=== PATIENT | male | born 1940 | race Caucasian/White ===

== ENCOUNTER 2016-10-25 12:58 | Emergency (ER) | payer MEDICARE ==
--- NOTE | 2016-10-25 13:42 | EDM.PDOC ---
ED HPI GENERAL MEDICAL PROBLEM - General Chief Complaint: General Stated Complaint: WILL CHEST PRESSURE Time Seen by Provider: 10/25/16 13:28 Source of Information: Reports: Patient, RN Notes Reviewed History Limitations: Reports: No Limitations - History of Present Illness INITIAL COMMENTS - FREE TEXT/NARRATIVE: 76-year-old gentleman presents emergency department a complaint of weakness and near syncopal event, he states is been feeling fatigued and weak for the last several months however yesterday he had event when he was working felt very lightheaded became short of breath felt some chest burning he did sit down and rest of the chest pressure was relieved shortness of breath improved he repeated going back to work same event happened again. He is chest pain-free at this time denies any fevers does admit to several tick bites - Related Data Allergies Allergy/AdvReac Type Severity Reaction Status Date / Time iv dye Allergy Airway Uncoded 10/25/16 13:15 Tightness Home Meds: Home Meds Losartan/Hydrochlorothiazide [Losartan-HCTZ 100-25 MG] 1 tab PO DAILY 10/25/16 [ History] Past Medical History HEENT History: Reports: Cataract, Impaired Vision Gastrointestinal History: Reports: Cholelithiasis, GERD Musculoskeletal History: Reports: Arthritis, Back Pain, Chronic Neurological History: Reports: Head Trauma Endocrine/Metabolic History: Reports: Obesity/BMI 30+ Oncologic (Cancer) History: Reports: Prostate - Infectious Disease History Infectious Disease History: Reports: Chicken Pox, Measles, Mononucleosis, Mumps - Past Surgical History HEENT Surgical History: Reports: Adenoidectomy, Cataract Surgery, Tonsillectomy GI Surgical History: Reports: Appendectomy, Cholecystectomy, Colonoscopy, Hernia Repair/Other, Polypectomy Male Surgical History: Reports: Prostatectomy Neurological Surgical History: Reports: Other (See Below) Social & Family History - Tobacco Use Smoking Status *Q: Never Smoker - Recreational Drug Use Recreational Drug Use: No ED ROS GENERAL - Review of Systems Review Of Systems: See Below Constitutional: Denies: Fever, Chills HEENT: Reports: No Symptoms Respiratory: Reports: Shortness of Breath. Denies: Cough, Sputum Cardiovascular: Reports: Chest Pain, Dyspnea on Exertion, Lightheadedness, Syncope GI/Abdominal: Reports: No Symptoms : Reports: No Symptoms Musculoskeletal: Reports: No Symptoms Skin: Reports: No Symptoms Neurological: Reports: Weakness Psychiatric: Reports: No Symptoms ED EXAM, GENERAL - Physical Exam Exam: See Below Free Text/Narrative:: General: Male, not in any distress, alert and oriented x3 HEENT: head is atraumatic normocephalic, eyes pupils equal round reactive to light, sclera clear no conjunctivitis appreciated. Ears canals blocked by cerumen bilaterally. Nose no septal deviation, nares are clear, no blood present. Mouth mucosa is moist and pink no erythema or exudate noted in soft palate, tongue is midline uvula is midline, dentition is intact. Neck: Supple no thyromegaly no tracheal deviation. Nodes: Cervical nodes subclavicular nodes nontender no palpable lymphadenopathy noted. Lungs: clear to auscultation bilaterally with symmetrical respirations, no adventitious noise appreciated. CV: Regular rate and rhythm S1 and S2 appreciated no murmurs rubs or gallops noted. Abdomen: Soft, nontender, no palpable masses or organomegaly appreciated, no distention no guarding bowel sounds are present, . Neuro: Cranial nerves II through XII grossly intact Course - Vital Signs Last Recorded V/S: Last Vital Signs Temp 98.2 F 10/25/16 14:45 Pulse 95 10/25/16 14:45 Resp 14 10/25/16 14:45 BP 146/79 H 10/25/16 14:45 Pulse Ox 93 L 10/25/16 14:45 - Orders/Labs/Meds Orders: Active Orders 24 hr Category Date Time Status Cardiac Monitoring [RC] .As Directed Care 10/25/16 13:36 Active EKG Documentation Completion [RC] ASDIRECTED Care 10/25/16 13:38 Active Chest 2V [CR] Stat Exams 10/25/16 13:38 Taken BABESIA MICROTI IGG AND IGM [REF] Urgent Lab 10/25/16 15:39 Ordered EHRLICHIA CHAFFEENSIS, IGG&IGM [REF] Urgent Lab 10/25/16 15:39 Ordered LYME AB SCREEN RFLX [REF] Urgent Lab 10/25/16 15:39 Ordered EKG 12 Lead [EK] Stat Ther 10/25/16 13:37 Ordered Labs: Laboratory Tests 10/25/16 10/25/16 10/25/16 Range/Units 13:36 13:53 13:53 WBC 9.1 (4.5-11.0) K/uL RBC 5.49 (4.30-5.90) M/uL Hgb 17.3 H (12.0-15.0) g/dL Hct 49.0 (40.0-54.0) % MCV 89 (80-98) fL MCH 32 H (27-31) pg MCHC 35 (32-36) % Plt Count 278 (150-400) K/uL Neut % (Auto) 65 (36-66) % Lymph % (Auto) 18 L (24-44) % Grimes % (Auto) 12 H (2-6) % Eos % (Auto) 4 (2-4) % Baso % (Auto) 1 (0-1) % D-Dimer, Quantitative (0.0-400.0) ng/mL Sodium 141 (140-148) mmol/L Potassium 4.1 (3.6-5.2) mmol/L Chloride 105 (100-108) mmol/L Carbon Dioxide 22 (21-32) mmol/L Anion Gap 14.0 (5.0-14.0) mmol/L BUN 30 H (7-18) mg/dL Creatinine 1.4 H (0.8-1.3) mg/dL Est Cr Clr Drug Dosing 46.35 mL/min Estimated GFR (MDRD) 49 L (>60) Glucose 107 H (74-106) mg/dL Lactic Acid 1.5 (0.4-2.0) mmol/L Calcium 9.0 (8.5-10.1) mg/dL Total Bilirubin 0.4 (0.2-1.0) mg/dL AST 30 (15-37) U/L ALT 43 (12-78) U/L Alkaline Phosphatase 118 H (46-116) U/L Troponin I < 0.017 (0.000-0.056) ng/mL C-Reactive Protein 0.48 H (0.0-0.3) mg/dL Odc-I-Chtmgssvibn Pept 22 (5-450) pg/mL Total Protein 7.4 (6.4-8.2) g/dL Albumin 3.8 (3.4-5.0) g/dL Globulin 3.6 H (2.3-3.5) g/dL Albumin/Globulin Ratio 1.1 L (1.2-2.2) TSH, Ultra Sensitive (0.358-3.740) uIU/mL Urine Color Urine Appearance Urine pH (4.5-8.0) Ur Specific Norman (1.008-1.030) Urine Protein (NEGATIVE) mg/dL Urine Glucose (UA) (NEGATIVE) mg/dL Urine Ketones (NEGATIVE) mg/dL Urine Occult Blood (NEGATIVE) Urine Nitrite (NEGAITVE) Urine Bilirubin (NEGATIVE) Urine Urobilinogen (NORMAL) mg/dL Ur Leukocyte Esterase (NEGATIVE) Urine RBC (0-5) Urine WBC (0-5) Ur Epithelial Cells Amorphous Sediment Urine Bacteria Urine Mucus Urine Other 10/25/16 10/25/16 10/25/16 Range/Units 13:53 14:53 15:01 WBC (4.5-11.0) K/uL RBC (4.30-5.90) M/uL Hgb (12.0-15.0) g/dL Hct (40.0-54.0) % MCV (80-98) fL MCH (27-31) pg MCHC (32-36) % Plt Count (150-400) K/uL Neut % (Auto) (36-66) % Lymph % (Auto) (24-44) % Grimes % (Auto) (2-6) % Eos % (Auto) (2-4) % Baso % (Auto) (0-1) % D-Dimer, Quantitative 905 H (0.0-400.0) ng/mL Sodium (140-148) mmol/L Potassium (3.6-5.2) mmol/L Chloride (100-108) mmol/L Carbon Dioxide (21-32) mmol/L Anion Gap (5.0-14.0) mmol/L BUN (7-18) mg/dL Creatinine (0.8-1.3) mg/dL Est Cr Clr Drug Dosing mL/min Estimated GFR (MDRD) (>60) Glucose (74-106) mg/dL Lactic Acid (0.4-2.0) mmol/L Calcium (8.5-10.1) mg/dL Total Bilirubin (0.2-1.0) mg/dL AST (15-37) U/L ALT (12-78) U/L Alkaline Phosphatase (46-116) U/L Troponin I (0.000-0.056) ng/mL C-Reactive Protein (0.0-0.3) mg/dL Vxj-[id number]-Umzihedxdlz Pept (5-450) pg/mL Total Protein (6.4-8.2) g/dL Albumin (3.4-5.0) g/dL Globulin (2.3-3.5) g/dL Albumin/Globulin Ratio (1.2-2.2) TSH, Ultra Sensitive 1.631 (0.358-3.740) uIU/mL Urine Color Yellow Urine Appearance Clear Urine pH 5.0 (4.5-8.0) Ur Specific Norman 1.020 (1.008-1.030) Urine Protein Trace (NEGATIVE) mg/dL Urine Glucose (UA) Normal (NEGATIVE) mg/dL Urine Ketones Negative (NEGATIVE) mg/dL Urine Occult Blood Negative (NEGATIVE) Urine Nitrite Negative (NEGAITVE) Urine Bilirubin Negative (NEGATIVE) Urine Urobilinogen Normal (NORMAL) mg/dL Ur Leukocyte Esterase Negative (NEGATIVE) Urine RBC 0-5 (0-5) Urine WBC 0-5 (0-5) Ur Epithelial Cells Few Amorphous Sediment Few Urine Bacteria Rare Urine Mucus Few Urine Other See note Departure - Departure Time of Disposition: 15:46 Disposition: Home, Self-Care 01 Condition: Good Clinical Impression: Weakness - Discharge Information Forms: ED Department Discharge Additional Instructions: Stop losartan, hydrochlorothiazide combination medication, prescription written for hydrochlorothiazide 25 mg once a day start this medication for blood pressure control prescription written for doxycycline antibiotic for possible lyme infection recommend waiting until tick panel results have returned, please follow-up with your primary care provider in the next 3-5 days for reevaluation of blood pressure - My Orders Last 24 Hours: My Active Orders 10/25/16 13:36 Cardiac Monitoring [RC] .As Directed 10/25/16 13:37 EKG 12 Lead [EK] Stat 10/25/16 13:38 EKG Documentation Completion [RC] ASDIRECTED Chest 2V [CR] Stat 10/25/16 15:39 BABESIA MICROTI IGG AND IGM [REF] Urgent EHRLICHIA CHAFFEENSIS, IGG&IGM [REF] Urgent LYME AB SCREEN RFLX [REF] Urgent - Assessment/Plan Last 24 Hours: My Active Orders 10/25/16 13:36 Cardiac Monitoring [RC] .As Directed 10/25/16 13:37 EKG 12 Lead [EK] Stat 10/25/16 13:38 EKG Documentation Completion [RC] ASDIRECTED Chest 2V [CR] Stat 10/25/16 15:39 BABESIA MICROTI IGG AND IGM [REF] Urgent EHRLICHIA CHAFFEENSIS, IGG&IGM [REF] Urgent LYME AB SCREEN RFLX [REF] Urgent Plan: Assessment Acuity = chronic Site and laterality = weakness Etiology = unclear etiology suspicious for tickborne illness Manifestations = recent chest pains and muscle skeletal pains possibly related to losartan Location of injury = home Lab values = CBC within normal limits d-dimer mildly elevated 905 unclear etiology creatinine elevated at 1.4 consistent with chronic renal failure stage GIII a troponin was negative TSH within normal limits urinalysis within normal limits chest x-ray I did review films myself I cannot appreciate any acute process, the official read from radiology is pending EKG demonstrates normal sinus rhythm there is no atrial enlargement there is no ventricular enlargement there is no axis deviation no T wave inversions I don't appreciate any ST depressions or elevations no Q waves noted good R wave progression Plan I did review lab work chest x-ray EKG results with him tick panel was drawn and is pending he prescription was written for doxycycline just in case the panel comes back positive review of his blood pressure medication he is on a combination losartan hydrochlorothiazide because of the side effect profile losartan stop that medication and just continue with the hydrochlorothiazide him follow-up with his primary care in 3-5 days for reevaluation Patient was in agreement with the plan all questions were answered, they were instructed to return to the emergency department or call for worsening symptoms. This note was dictated using [employer] voice recognition software please call with any questions.
[2016-10-25 14:47] VITALS: BP 146/79
--- NOTE | 2016-10-27 08:25 | CR ---
Chest 2V HISTORY: sob COMPARISON: None FINDINGS: Lungs appear clear and normally aerated. Cardiomediastinal silhouette is within normal limits. No va scular redistribution or pleural fluid can be seen. Anterolateral aspects are noted along the thorac ic spine. IMPRESSION: No acute cardiopulmonary disease is identified.
== END 2016-10-25 16:15 | disposition home or self-care (01) ==
LOC: JP.ED 12:58
DX: R53.1 Weakness (principal); H54.7 Unspecified visual loss; K21.9 Gastro-esophageal reflux disease without esophagitis; R06.02 Shortness of breath; E66.9 Obesity, unspecified; Z91.041 Radiographic dye allergy status; Z79.899 Other long term (current) drug therapy; Z90.49 Acquired absence of other specified parts of digestive tract
CPT/HCPCS: 36415; 71020; 71020-26; 80053; 81001; 83605; 83880; 84443; 84484; 85025; 85379; 86140; 86618; 86666; 86666-59; 86753; 93005; 93010; 99284; 99284-25

== ENCOUNTER 2020-01-27 07:08 | Emergency (ER) | payer MEDICARE ==
[2020-01-27 07:15] VITALS: BP 173/77; PULSE 79
[2020-01-27] MEDS ORDERED: Acetaminophen/HYDROcodone 325-5 MG Tab PO ONE (07:37)
--- NOTE | 2020-01-27 07:38 | EDM.PDOC ---
ED HPI GENERAL MEDICAL PROBLEM - General Chief Complaint: Lower Extremity Injury/Pain Stated Complaint: INJURED KNEE WHILE GETTING OFF TRACTOR Time Seen by Provider: 01/27/20 07:33 Source of Information: Reports: Patient History Limitations: Reports: No Limitations - History of Present Illness INITIAL COMMENTS - FREE TEXT/NARRATIVE: pt was on a tractor yestwerday and he went to get off and he caught his foot and he twisted his knee markedly. He had alot of pain in it this am and he did fall about 1 am. He does have a history of spinal stenosis and always has some pain in the left leg. He does not think he injured himself when he fell in the nite. He does have significant swelling in the left knee. Onset: Other (pt had difficulty getting off of the tractor yesterday. ) Duration: Hour(s): Location: Reports: Lower Extremity, Left Associated Symptoms: Reports: No Other Symptoms Left Knee Pain Score (Numeric/FACES): 5 - Related Data Allergies Allergy/AdvReac Type Severity Reaction Status Date / Time iv dye Allergy Airway Uncoded 10/25/16 13:15 Tightness Home Meds: Home Meds Losartan/Hydrochlorothiazide [Losartan-HCTZ 100-25 MG] 1 tab PO DAILY 10/25/16 [ History] Gabapentin [Neurontin] 300 mg PO DAILY 01/27/20 [History] Rosuvastatin [Crestor] 20 mg PO DAILY 01/27/20 [History] lisinopriL [Lisinopril] 20 mg PO DAILY 01/27/20 [History] Past Medical History HEENT History: Reports: Cataract, Impaired Vision Cardiovascular History: Reports: Hypertension Gastrointestinal History: Reports: Cholelithiasis, GERD Musculoskeletal History: Reports: Arthritis, Back Pain, Chronic Neurological History: Reports: Head Trauma Endocrine/Metabolic History: Reports: Obesity/BMI 30+ Oncologic (Cancer) History: Reports: Prostate Dermatologic History: Reports: Melanoma - Infectious Disease History Infectious Disease History: Reports: Chicken Pox, Measles, Mononucleosis, Mumps - Past Surgical History HEENT Surgical History: Reports: Adenoidectomy, Cataract Surgery, Tonsillectomy GI Surgical History: Reports: Appendectomy, Cholecystectomy, Colonoscopy, Hernia Repair/Other, Polypectomy Male Surgical History: Reports: Prostatectomy Neurological Surgical History: Reports: Other (See Below) Social & Family History - Tobacco Use Smoking Status *Q: Never Smoker - Caffeine Use Caffeine Use: Reports: Coffee, Soda - Recreational Drug Use Recreational Drug Use: No Review of Systems - Review of Systems Review Of Systems: See Below Constitutional: Reports: No Symptoms Eyes: Reports: No Symptoms Ears: Reports: No Symptoms Nose: Reports: No Symptoms Mouth/Throat: Reports: No Symptoms Respiratory: Reports: No Symptoms Cardiovascular: Reports: No Symptoms GI/Abdominal: Reports: No Symptoms Genitourinary: Reports: No Symptoms Musculoskeletal: Reports: Joint Pain, Joint Swelling Skin: Reports: No Symptoms ED EXAM, GENERAL - Physical Exam Exam: See Below Free Text/Narrative:: pt arrived because of marked knee swelling and pain in the knee. Exam Limited By: No Limitations General Appearance: Alert, Moderate Distress Ears: Normal TMs Nose: Normal Inspection Throat/Mouth: Normal Inspection Head: Atraumatic Neck: Normal Inspection Respiratory/Chest: No Respiratory Distress Cardiovascular: Regular Rate, Rhythm GI/Abdominal: Soft, Non-Tender Back Exam: Other (pt has chronic back pain and tenderness) Extremities: Other (pt has very mild tenderness over the left hip, his left knee is very swollen. He has alot of tenderness on the lateral aspect of the left knee. He has no bruising or discoloration. ) Neurological: Alert, Oriented, Normal Cognition Psychiatric: Anxious Course - Vital Signs Last Recorded V/S: Last Vital Signs Temp 36.7 C 01/27/20 07:11 Pulse 79 01/27/20 07:11 Resp 16 01/27/20 07:11 BP 173/77 H 01/27/20 07:11 Pulse Ox 94 L 01/27/20 07:11 - Orders/Labs/Meds Meds: Medications Discontinued Medications Generic Name Dose Route Start Last Admin Trade Name Jojo PRN Reason Stop Dose Admin Hydrocodone Bitart/Acetaminophen 1 tab 01/27/20 07:37 01/27/20 07:52 [place] 325-5 Mg PO 01/27/20 07:38 1 tab ONETIME ONE Administration - Re-Assessments/Exams Free Text/Narrative Re-Assessment/Exam: 01/27/20 10:36 xray showed a tibial plateau fracture, lateral without displacement. He had a MRI which showed blood in the joint and a tear of his medial menicus. Departure - Departure Time of Disposition: 10:39 Disposition: Home, Self-Care 01 Condition: Fair Clinical Impression: Fracture of tibial plateau, Medial meniscus tear - Discharge Information Referrals: PCP,None [Primary Care Provider] - Forms: ED Department Discharge Care Plan Goals: to the clinic to see ortho, no weight bearing, walker, norco 5,325 q 6h prn for pain, knee imoblizer. Sepsis Event Note (ED) - Evaluation Sepsis Screening Result: No Definite Risk - Focused Exam Vital Signs: Vital Signs Temp Pulse Resp BP Pulse Ox 01/27/20 07:11 36.7 C 79 16 173/77 H 94 L
--- NOTE | 2020-01-27 09:03 | CR ---
Knee Min 4V Lt CLINICAL HISTORY: Injury, swelling FINDINGS: There is a comminuted nondisplaced fracture through the lateral tibial plateau. There is hemarthrosis. There are some osteoarthritic changes. IMPRESSION: Fracture lateral tibial plateau, Hemarthrosis
--- NOTE | 2020-01-27 09:49 | MR ---
Knee wo Cont Lt CLINICAL HISTORY: Tibial plateau fracture TECHNIQUE: Multiple pulse sequences were obtained through the knee in the axial, coronal, and sagittal planes without the IV infusion of contrast material. All images were obtained on a 1.5 Abigail unit. FINDINGS: There is a comminuted nondisplaced fracture of the lateral tibial plateau. There is moderate joint fluid likely hemarthrosis. There is no significant Crump's cyst. The lateral meniscus is intact. There is a complex tear in the posterior horn of the medial meniscus with some degenerative change. Anterior posterior cruciate ligaments appear intact. There is some irregularity and abnormal signal in the lateral collateral ligament felt to represent the a grade 2 strain. Popliteus tendon is intact. The quadriceps and patellar tendons have a normal contour and signal. There is moderate loss of articular cartilage in both the medial and lateral compartments. There is loss of articular cartilage on both the medial and lateral patellar facets IMPRESSION: Comminuted nondisplaced fracture of the lateral tibial plateau. Complex tear posterior horn medial meniscus Grade 2 strain of the lateral collateral ligament inner fibers Hemarthrosis Osteoarthritis with moderate loss of articular cartilage
== END 2020-01-27 10:50 | disposition home or self-care (01) ==
LOC: JP.ED 07:08
DX: S82.145A Nondisplaced bicondylar fracture of left tibia, initial encounter for closed fracture (principal); S83.242A Other tear of medial meniscus, current injury, left knee, initial encounter; I10 Essential (primary) hypertension; E66.9 Obesity, unspecified; Z90.49 Acquired absence of other specified parts of digestive tract; Z91.041 Radiographic dye allergy status; Z79.899 Other long term (current) drug therapy; Z68.37 Body mass index [BMI] 37.0-37.9, adult; X50.1XXA Overexertion from prolonged static or awkward postures, initial encounter
CPT/HCPCS: 73564; 73721; 99284; A9270